=== PATIENT | female | born 1950 | race Caucasian/White ===

== ENCOUNTER 2018-11-28 18:11 | Emergency (ER) | payer BC ==
--- NOTE | 2018-11-28 18:23 | ERPHSYRPT ---
- History of Present Illness Time Seen by Provider: 11/28/18 18:19 Source: patient, family Physician History: loss of sensation in the right lower extremity since 8am, mild to mod pain and numb in the left lower extremity, hx smoking, no dm, unable to ambulate, no fever Allergies/Adverse Reactions: No Known Drug Allergies Allergy (Unverified 11/28/18 18:24) Home Medications: Aspirin [Aspirin EC] 81 mg PO DAILY 11/28/18 [History] - Review of Systems Constitutional: No Fever Eyes: No Vision Changes Ears, Nose, & Throat: No Hoarse Respiratory: No Cough Cardiac: No Chest Pain Abdominal/Gastrointestinal: No Abdominal Pain Musculoskeletal: No Back Pain Neurological: No Dizziness - Past Medical History Pertinent Past Medical History: Yes - Nursing Vital Signs Nursing Vital Signs: Initial Vital Signs Temperature 97.3 F 11/28/18 18:13 Pulse Rate 80 11/28/18 18:13 Respiratory Rate 18 11/28/18 18:13 Blood Pressure 192/84 11/28/18 18:13 O2 Sat by Pulse Oximetry 100 11/28/18 18:13 Pain Scale Pain Intensity 10 - Physical Exam General Appearance: no apparent distress Eye Exam: eyes nml inspection Ears, Nose, Throat Exam: pharynx normal Neck Exam: normal inspection Respiratory Exam: No respiratory distress Cardiovascular Exam: regular rate/rhythm Gastrointestinal/Abdomen Exam: No tenderness Extremity Exam: other (bilateral lower legs pulseless, cool, rom limited, no streaks) Neurologic Exam: alert, oriented x 3, cooperative Skin Exam: pale - Course Nursing assessment & vital signs reviewed: Yes - Progress Progress: unchanged Progress Note: 11/28/18 18:27 Dr Black at [facility] accepts transfer for vascular surgeon - Departure Departure Disposition: Transfer Clinical Impression: Peripheral arterial disease Condition: Stable Critical Care Time: No Referrals: SHRUTI SOUZA MOBILITY ENGINEER [Primary Care Provider] -
[2018-11-28 18:25] VITALS: BP 192/84; PULSE 80; O2SAT 100
== END 2018-11-28 18:48 | disposition short-term general hospital (02) ==
LOC: ED 18:11
DX: I73.9 Peripheral vascular disease, unspecified (principal); R42 Dizziness and giddiness
CPT/HCPCS: 99284; 99285; 99291